=== PATIENT | female | born 1940 | race Caucasian/White ===

== ENCOUNTER 2021-11-22 22:57 | Inpatient (IN) ==
[2021-11-23 00:06] LABS: VBG HCO3 24 mEq/L (21-27); VBG PCO2 43 mmHg (41-51); VBG PH 7.36 pH Units (7.32-7.42); VBG PO2 54 mmHg (25-50)
[2021-11-23 00:07] LABS: INR 1.2; Prothrombin Time 13.1 Seconds (9.4-12.1)
[2021-11-23 00:10] LABS: Activated Partial Thrombo Time 29.7 Seconds (26.0-36.0)
[2021-11-23 00:22] LABS: Albumin 3.6 g/dL (3.5-5.7); Bilirubin,Total 0.6 mg/dL (0.3-1.0); Calcium 8.8 mg/dL (8.6-10.3); Globulin 3.5 g/dL (2.4-3.5); Potassium 3.3 mEq/L (3.5-5.1); Total Protein 7.1 g/dL (6.4-8.9)
[2021-11-23 00:29] LABS: Basophils % 0.3 %; Eosinophils # 0.3 K/mcL (0.0-0.6); Eosinophils % 2.8 %; Hematocrit 35.7 % (35.3-44.9); Hemoglobin 11.2 g/dL (11.5-15.4); Immature Granulocytes % 0.3 % (0-4); Lymphocytes # 2.5 K/mcL (0.6-4.6); Lymphocytes % 27.1 %; Mean Corpuscular HGB Conc 31.4 g/dL (31.6-35.5); Mean Corpuscular Hemoglobin 28.6 pg (28.0-33.3); Mean Corpuscular Volume 91.1 fL (83.0-100.0); Monocytes # 1.1 K/mcL (0.0-1.3); Monocytes % 11.6 %; Neutrophils # 5.3 K/mcL (1.6-8.9); Platelet Count 240 K/mcL (140-400); Red Blood Count 3.92 M/mcL (3.82-4.97); Red Cell Distribution Width 16.4 % (11.5-14.5); Segmented Neutrophils % 57.9 %; White Blood Count 9.1 K/mcL (4.3-11.1)
[2021-11-23] MEDS ORDERED: Iopamidol - 370 500 ML MLS IVP ONE (01:19)
[2021-11-23 01:49] LABS: Troponin I 0.08 ng/mL (< 0.04)
[2021-11-23] MEDS ORDERED: EPINEPHrine 1 MG/ML VIAL ONE (02:29)
[2021-11-23] MEDS ORDERED: EPINEPHrine 1 MG/ML VIAL IM ONE (02:32)
[2021-11-23] MEDS ORDERED: methylPREDNISolone 125 MG/2 ML VIAL IVP ONE (02:56)
[2021-11-23] MEDS ORDERED: 0.9 % Sodium Chloride 500 ML ONE (03:06)
[2021-11-23] MEDS ORDERED: *HR* Succinylcholine 200 MG/10 ML VIAL IVP ONE ×2 (03:07→04:00)
[2021-11-23] MEDS ORDERED: *HR* Etomidate 40 MG/20 ML VIAL IVP ONE (03:07)
[2021-11-23] MEDS ORDERED: *HR* Etomidate 20 MG/10 ML AMPUL IVP ONE ×2 (03:15→04:00)
[2021-11-23 03:24] LABS: VBG HCO3 24 mEq/L (21-27); VBG PCO2 58 mmHg (41-51); VBG PH 7.23 pH Units (7.32-7.42); VBG PO2 225 mmHg (25-50)
[2021-11-23 03:36] LABS: ABG Base Excess -5 mEq/L (-2 to 3); ABG HCO3 21 mEq/L (21-27); ABG Oxygen Saturation 100 % (95-98); ABG PCO2 39 mmHg (35-45); ABG PH 7.34 pH Units (7.32-7.45); ABG PO2 456 mmHg (85-104); ABG TCO2 22 mEq/L (20-26); Blood Gas Modality ASSIST CONTROL; Blood Gas VT 400 cc
[2021-11-23 04:19] LABS: Bilirubin,Urine Negative (Negative); Blood,Urine Negative (Negative); Budding Yeast,Urine Few per hpf (None Seen); Clarity,Urine Clear (Clear); Color,Urine Light-Yellow (Yellow); Glucose,Urine (UA) Normal (Normal); Hyaline Casts,Urine Few per lpf (None Seen); Ketones,Urine Negative (Negative); Leukocyte Esterase,Urine Moderate (Negative); Nitrite,Urine Negative (Negative); Protein,Urine Trace mg/dL (Neg-Trace); Specific Gravity,Urine > 1.030 (1.010-1.025); Squamous Epithelial Cell,Urine Few per hpf (None-Few); Urobilinogen,Urine Normal (Normal)
[2021-11-23] MEDS ORDERED: Naloxone 0.4 MG/ML INJ IVP PRN (05:19)
[2021-11-23] MEDS ORDERED: Artificial Tears SOLN 15 ML BOTTLE BOTH EYES PRN (05:30)
[2021-11-23] MEDS ORDERED: Famotidine 20 MG/2 ML VIAL IVP ONE (05:32)
[2021-11-23] MEDS ORDERED: *HR* Dextrose 50 % in Water (Syg) 50 ML SYRINGE IVP PRN (06:06)
[2021-11-23] MEDS ORDERED: D5% in Water 1,000 ML IVC PRN (06:06)
[2021-11-23] MEDS ORDERED: Dextrose Gel 15 GM/37.5 ML TUBE PO PRN ×2 (06:06)
[2021-11-23] MEDS: FentaNYL (PF) 1,000 MCG/100 ML IV.SOLN IVC SCH (06:14)
[2021-11-23] MEDS ORDERED: Ringers Solution, Lactated 1,000 ML ONE (06:35)
[2021-11-23] MEDS: Ipratropium/Albuterol Neb 3 ML IH SCH ×5 (08:02→23:29)
[2021-11-23 08:19] LABS: ABG Base Excess -3 mEq/L (-2 to 3); ABG HCO3 22 mEq/L (21-27); ABG Oxygen Saturation 99 % (95-98); ABG PCO2 39 mmHg (35-45); ABG PH 7.37 pH Units (7.32-7.45); ABG PO2 158 mmHg (85-104); ABG TCO2 24 mEq/L (20-26); Blood Gas Modality ASSIST CONTROL; Blood Gas VT 360 cc
[2021-11-23 08:21] LABS: Basophils % 0.1 %; Eosinophils % 0.2 %; Hematocrit 31.6 % (35.3-44.9); Hemoglobin 10.1 g/dL (11.5-15.4); Immature Granulocytes % 0.5 % (0-4); Lymphocytes # 0.6 K/mcL (0.6-4.6); Lymphocytes % 6.5 %; Mean Corpuscular Volume 90.8 fL (83.0-100.0); Mean Platelet Volume 10.6 fL (9.4-12.4); Monocytes # 0.5 K/mcL (0.0-1.3); Monocytes % 5.4 %; Neutrophils # 8.1 K/mcL (1.6-8.9); Platelet Count 165 K/mcL (140-400); Red Blood Count 3.48 M/mcL (3.82-4.97); Red Cell Distribution Width 16.4 % (11.5-14.5); Segmented Neutrophils % 87.3 %; White Blood Count 9.2 K/mcL (4.3-11.1)
[2021-11-23 08:35] LABS: INR 1.3
[2021-11-23 08:36] LABS: Albumin 2.9 g/dL (3.5-5.7); Bilirubin,Direct 0.2 mg/dL (0.0-0.2); Bilirubin,Indirect 0.5 mg/dL (0.0-1.0); Bilirubin,Total 0.7 mg/dL (0.3-1.0); Calcium 7.9 mg/dL (8.6-10.3); Globulin 2.9 g/dL (2.4-3.5); Magnesium 0.9 mg/dL (1.6-2.6); Potassium 3.8 mEq/L (3.5-5.1); Total Protein 5.8 g/dL (6.4-8.9)
[2021-11-23 08:37] LABS: Acetaminophen < 10 mcg/mL (10-20); Salicylate < 2.5 mg/dL (15.0-30.0)
[2021-11-23 08:51] LABS: Thyroid Stimulating Hormone 1.369 mcIU/mL (0.340-5.600)
[2021-11-23] MEDS ORDERED: Dexamethasone Sodium Phos/PF 10 MG/ML VIAL ONE (08:58)
[2021-11-23] MEDS ORDERED: levoFLOXacin 500 MG/100 ML 500 MG/100 ML BAG IVPB SCH (09:00)
[2021-11-23] MEDS ORDERED: Pantoprazole 40 MG VIAL IVP SCH (09:00)
[2021-11-23] MEDS: Ampicillin/Sulbactam 3,000 MG in 0.9 % Sodium Chloride Mini Bag 100 ML IVPB SCH ×2 (09:04→17:34)
[2021-11-23] MEDS: Dexamethasone Sodium Phos/PF 10 MG/ML VIAL IVP SCH ×2 (09:05→09:58)
[2021-11-23] MEDS: Artificial Tears SOLN 15 ML BOTTLE BOTH EYES SCH ×4 (09:17→21:19)
[2021-11-23] MEDS: Vancomycin Oral Soln 125 MG/2.5 ML UDC PO SCH ×4 (09:17→21:19)
[2021-11-23] MEDS: Chlorhexidine Rinse 15 ML MOUTHWASH MM SCH ×2 (09:17→21:20)
[2021-11-23] MEDS: Insulin LISPRO 300 UNITS/3 ML VIAL SUBQ SCH ×2 (13:06→17:38)
[2021-11-23] MEDS: methylPREDNISolone 125 MG/2 ML VIAL IVP SCH (17:35)
[2021-11-23] MEDS: *HR* Heparin 5,000 UNIT/ML VIAL SQ SCH (17:36)
[2021-11-23] MEDS: Famotidine 20 MG/2 ML VIAL IVP SCH (18:55)
[2021-11-24] MEDS: Artificial Tears SOLN 15 ML BOTTLE BOTH EYES SCH ×7 (01:41→23:22)
[2021-11-24] MEDS: methylPREDNISolone 125 MG/2 ML VIAL IVP SCH ×3 (01:41→18:54)
[2021-11-24] MEDS: Insulin LISPRO 300 UNITS/3 ML VIAL SUBQ SCH ×4 (01:42→18:56)
[2021-11-24 03:07] LABS: VBG Ionized Calcium 1.04 mmol/L (1.15-1.35)
[2021-11-24 03:16] LABS: Hematocrit 29.9 % (35.3-44.9); Hemoglobin 9.4 g/dL (11.5-15.4); Immature Granulocytes % 0.4 % (0-4); Lymphocytes # 0.7 K/mcL (0.6-4.6); Lymphocytes % 8.3 %; Mean Corpuscular HGB Conc 31.4 g/dL (31.6-35.5); Mean Corpuscular Hemoglobin 28.7 pg (28.0-33.3); Mean Corpuscular Volume 91.2 fL (83.0-100.0); Mean Platelet Volume 10.9 fL (9.4-12.4); Monocytes # 0.3 K/mcL (0.0-1.3); Neutrophils # 6.9 K/mcL (1.6-8.9); Platelet Count 194 K/mcL (140-400); Red Blood Count 3.28 M/mcL (3.82-4.97); Red Cell Distribution Width 16.2 % (11.5-14.5); Segmented Neutrophils % 87.3 %; White Blood Count 7.8 K/mcL (4.3-11.1)
[2021-11-24 03:28] LABS: Albumin 3.1 g/dL (3.5-5.7); Albumin/Globulin Ratio 1.1 (1.1-2.2); Bilirubin,Total 0.5 mg/dL (0.3-1.0); Calcium 8.1 mg/dL (8.6-10.3); Globulin 2.9 g/dL (2.4-3.5); Phosphorous 3.8 mg/dL (2.7-4.5); Potassium 4.3 mEq/L (3.5-5.1)
[2021-11-24] MEDS: FentaNYL (PF) 1,000 MCG/100 ML IV.SOLN IVC SCH (04:00)
[2021-11-24] MEDS: Ipratropium/Albuterol Neb 3 ML IH SCH ×6 (04:58→23:10)
[2021-11-24] MEDS: Famotidine 20 MG/2 ML VIAL IVP SCH (06:05)
[2021-11-24] MEDS: *HR* Heparin 5,000 UNIT/ML VIAL SQ SCH ×2 (06:05→18:54)
[2021-11-24] MEDS: Ampicillin/Sulbactam 3,000 MG in 0.9 % Sodium Chloride Mini Bag 100 ML IVPB SCH ×2 (06:06→18:55)
[2021-11-24] MEDS ORDERED: Famotidine 20 MG/2 ML VIAL IVP SCH (09:30)
[2021-11-24] MEDS: Chlorhexidine Rinse 15 ML MOUTHWASH MM SCH ×2 (09:30→20:06)
[2021-11-24] MEDS: Vancomycin Oral Soln 125 MG/2.5 ML UDC PO SCH ×5 (09:31→20:14)
[2021-11-24] MEDS ORDERED: OLANZapine 10 MG VIAL IM ONE (22:54)
[2021-11-25] MEDS ORDERED: *HR* Labetalol 20 MG/4 ML SYRINGE IVP ONE (00:13)
[2021-11-25] MEDS: Insulin LISPRO 300 UNITS/3 ML VIAL SUBQ SCH ×5 (00:32→20:29)
[2021-11-25] MEDS: Acetaminophen 325 MG TABLET PO PRN (01:12)
[2021-11-25] MEDS: methylPREDNISolone 125 MG/2 ML VIAL IVP SCH ×3 (02:02→20:34)
[2021-11-25 02:47] LABS: Hematocrit 29.6 % (35.3-44.9); Hemoglobin 9.2 g/dL (11.5-15.4); Immature Granulocytes % 0.4 % (0-4); Lymphocytes # 0.3 K/mcL (0.6-4.6); Lymphocytes % 4.6 %; Mean Corpuscular HGB Conc 31.1 g/dL (31.6-35.5); Mean Corpuscular Hemoglobin 28.8 pg (28.0-33.3); Mean Corpuscular Volume 92.5 fL (83.0-100.0); Mean Platelet Volume 10.8 fL (9.4-12.4); Monocytes # 0.1 K/mcL (0.0-1.3); Monocytes % 1.8 %; Neutrophils # 6.6 K/mcL (1.6-8.9); Platelet Count 223 K/mcL (140-400); Red Cell Distribution Width 16.4 % (11.5-14.5); Segmented Neutrophils % 93.2 %
[2021-11-25 03:10] LABS: Calcium 8.5 mg/dL (8.6-10.3); Potassium 4.8 mEq/L (3.5-5.1)
[2021-11-25] MEDS: Ipratropium/Albuterol Neb 3 ML IH SCH ×2 (04:38→07:43)
[2021-11-25] MEDS: Artificial Tears SOLN 15 ML BOTTLE BOTH EYES SCH ×5 (04:44→20:31)
[2021-11-25] MEDS: *HR* Heparin 5,000 UNIT/ML VIAL SQ SCH ×2 (06:00→17:33)
[2021-11-25] MEDS: Ampicillin/Sulbactam 3,000 MG in 0.9 % Sodium Chloride Mini Bag 100 ML IVPB SCH (06:00)
[2021-11-25] MEDS: Famotidine 20 MG/2 ML VIAL IVP SCH (06:01)
[2021-11-25] MEDS ORDERED: Ipratropium/Albuterol Neb 3 ML IH PRN (08:09)
[2021-11-25] MEDS: Vancomycin Oral Soln 125 MG/2.5 ML UDC PO SCH ×4 (10:12→20:28)
[2021-11-25] MEDS: Chlorhexidine Rinse 15 ML MOUTHWASH MM SCH ×2 (10:14→20:28)
[2021-11-25] MEDS: carvediloL 6.25 MG TABLET PO SCH (17:27)
[2021-11-25] MEDS: Pantoprazole 40 MG VIAL IVP SCH (17:29)
[2021-11-25] MEDS: Lactobacillus 1 EACH CAP.SPRINK PO SCH (20:28)
[2021-11-25] MEDS: Mirtazapine 15 MG TABLET PO SCH (20:28)
[2021-11-25 20:52] LABS: Hematocrit 31.4 % (35.3-44.9); Hemoglobin 9.9 g/dL (11.5-15.4)
[2021-11-26] MEDS: Artificial Tears SOLN 15 ML BOTTLE BOTH EYES SCH ×7 (00:30→20:22)
[2021-11-26] MEDS: Famotidine 20 MG/2 ML VIAL IVP SCH (06:16)
[2021-11-26] MEDS: Pantoprazole 40 MG VIAL IVP SCH ×2 (06:17→17:39)
[2021-11-26] MEDS: *HR* Heparin 5,000 UNIT/ML VIAL SQ SCH ×2 (06:17→17:39)
[2021-11-26 07:35] LABS: Magnesium 1.5 mg/dL (1.6-2.6); Phosphorous 2.5 mg/dL (2.7-4.5)
[2021-11-26 07:38] LABS: Calcium 9.1 mg/dL (8.6-10.3); Potassium 4.2 mEq/L (3.5-5.1)
[2021-11-26 07:39] LABS: % Iron Saturation 32 % (15-50); Iron 113 mcg/dL (50-170); Transferrin 254 mg/dL (203-362)
[2021-11-26 07:55] LABS: Ferritin 109 ng/mL (10-120)
[2021-11-26 08:00] LABS: Folate 7.3 ng/mL (3.0-16.0)
[2021-11-26] MEDS ORDERED: amLODIPine 5 MG TABLET PO SCH (09:00)
[2021-11-26] MEDS: carvediloL 6.25 MG TABLET PO SCH ×2 (09:54→17:39)
[2021-11-26] MEDS: Lactobacillus 1 EACH CAP.SPRINK PO SCH ×2 (09:54→20:18)
[2021-11-26] MEDS: Loratadine 10 MG TABLET PO SCH (09:54)
[2021-11-26] MEDS: Chlorhexidine Rinse 15 ML MOUTHWASH MM SCH ×2 (09:56→20:18)
[2021-11-26] MEDS: Vancomycin Oral Soln 125 MG/2.5 ML UDC PO SCH ×4 (09:56→20:18)
[2021-11-26] MEDS: methylPREDNISolone 125 MG/2 ML VIAL IVP SCH (10:00)
[2021-11-26] MEDS: Insulin LISPRO 300 UNITS/3 ML VIAL SUBQ SCH ×5 (10:00→20:22)
[2021-11-26 12:05] LABS: Basophils % 0.2 %; Eosinophils % 0.3 %; Hematocrit 34.9 % (35.3-44.9); Hemoglobin 10.9 g/dL (11.5-15.4); Immature Granulocytes % 0.5 % (0-4); Lymphocytes # 1.1 K/mcL (0.6-4.6); Lymphocytes % 17.1 %; Mean Corpuscular HGB Conc 31.2 g/dL (31.6-35.5); Mean Corpuscular Hemoglobin 29.1 pg (28.0-33.3); Mean Corpuscular Volume 93.3 fL (83.0-100.0); Mean Platelet Volume 10.1 fL (9.4-12.4); Monocytes # 0.4 K/mcL (0.0-1.3); Monocytes % 5.4 %; Neutrophils # 4.9 K/mcL (1.6-8.9); Platelet Count 203 K/mcL (140-400); Red Blood Count 3.74 M/mcL (3.82-4.97); Red Cell Distribution Width 16.1 % (11.5-14.5); Segmented Neutrophils % 76.5 %; White Blood Count 6.4 K/mcL (4.3-11.1)
[2021-11-26] MEDS: Magnesium Oxide 400 MG TABLET PO SCH ×2 (12:37→20:51)
[2021-11-26] MEDS: Acetaminophen 325 MG TABLET PO PRN (12:53)
[2021-11-26] MEDS: Mirtazapine 15 MG TABLET PO SCH (20:18)
[2021-11-27] MEDS: Artificial Tears SOLN 15 ML BOTTLE BOTH EYES SCH ×6 (01:13→20:56)
[2021-11-27 03:45] LABS: Calcium 8.6 mg/dL (8.6-10.3); Magnesium 1.5 mg/dL (1.6-2.6); Phosphorous 4.3 mg/dL (2.7-4.5); Potassium 4.8 mEq/L (3.5-5.1)
[2021-11-27] MEDS: *HR* Heparin 5,000 UNIT/ML VIAL SQ SCH ×2 (05:32→16:40)
[2021-11-27] MEDS: Famotidine 20 MG/2 ML VIAL IVP SCH (05:33)
[2021-11-27] MEDS: Pantoprazole 40 MG VIAL IVP SCH ×2 (05:33→16:40)
[2021-11-27] MEDS ORDERED: Haloperidol Lactate 5 MG/ML VIAL IM ONE (06:36)
[2021-11-27] MEDS ORDERED: 0.9 % Sodium Chloride 1,000 ML IVC SCH (07:15)
[2021-11-27 08:25] LABS: Basophils % 0.1 %; Eosinophils # 0.1 K/mcL (0.0-0.6); Eosinophils % 1.7 %; Hematocrit 33.9 % (35.3-44.9); Hemoglobin 10.7 g/dL (11.5-15.4); Immature Granulocytes % 0.3 % (0-4); Lymphocytes # 2.4 K/mcL (0.6-4.6); Mean Corpuscular HGB Conc 31.6 g/dL (31.6-35.5); Mean Corpuscular Hemoglobin 29.3 pg (28.0-33.3); Mean Corpuscular Volume 92.9 fL (83.0-100.0); Mean Platelet Volume 10.2 fL (9.4-12.4); Monocytes # 0.7 K/mcL (0.0-1.3); Monocytes % 9.4 %; Neutrophils # 3.8 K/mcL (1.6-8.9); Platelet Count 199 K/mcL (140-400); Red Blood Count 3.65 M/mcL (3.82-4.97); Red Cell Distribution Width 15.9 % (11.5-14.5); Segmented Neutrophils % 54.5 %
[2021-11-27] MEDS ORDERED: MethylPREDNISolone 40 MG/ML VIAL IVP SCH (09:00)
[2021-11-27] MEDS: amLODIPine 5 MG TABLET PO SCH (09:33)
[2021-11-27] MEDS: Lactobacillus 1 EACH CAP.SPRINK PO SCH ×2 (09:33→20:50)
[2021-11-27] MEDS: Loratadine 10 MG TABLET PO SCH (09:34)
[2021-11-27] MEDS: Vancomycin Oral Soln 125 MG/2.5 ML UDC PO SCH ×4 (09:34→20:51)
[2021-11-27] MEDS: carvediloL 6.25 MG TABLET PO SCH ×2 (09:34→16:40)
[2021-11-27] MEDS: Chlorhexidine Rinse 15 ML MOUTHWASH MM SCH ×2 (09:34→20:51)
[2021-11-27] MEDS: Magnesium Oxide 400 MG TABLET PO SCH (09:34)
[2021-11-27] MEDS: Insulin LISPRO 300 UNITS/3 ML VIAL SUBQ SCH ×4 (09:38→20:51)
[2021-11-27] MEDS: predniSONE 20 MG TABLET PO SCH (11:27)
[2021-11-27 15:39] LABS: Bacteria,Urine Few per hpf (None-Few); Bilirubin,Urine Negative (Negative); Blood,Urine Negative (Negative); Budding Yeast,Urine Many per hpf (None Seen); Clarity,Urine Clear (Clear); Color,Urine Light-Yellow (Yellow); Glucose,Urine (UA) Normal (Normal); Hyaline Casts,Urine Few per lpf (None Seen); Ketones,Urine Negative (Negative); Leukocyte Esterase,Urine Large (Negative); Mucus,Urine Few per lpf (None-Few); Nitrite,Urine Negative (Negative); Protein,Urine Negative (Neg-Trace); Specific Gravity,Urine 1.014 (1.010-1.025); Transitional Epi Cells,Urine Few per hpf (None-Few); Urobilinogen,Urine Normal (Normal); WBC,Urine 50-100 per hpf (0-3)
[2021-11-27] MEDS: cefTRIAXone 1,000 MG in 0.9 % Sodium Chloride 10 ML IVP SCH (17:17)
[2021-11-27] MEDS: Mirtazapine 15 MG TABLET PO SCH (20:50)
[2021-11-28] MEDS: Artificial Tears SOLN 15 ML BOTTLE BOTH EYES SCH ×7 (00:35→23:41)
[2021-11-28 03:42] LABS: Basophils % 0.1 %; Eosinophils % 0.4 %; Hematocrit 31.2 % (35.3-44.9); Hemoglobin 9.9 g/dL (11.5-15.4); Immature Granulocytes % 1.1 % (0-4); Lymphocytes # 1.4 K/mcL (0.6-4.6); Lymphocytes % 17.6 %; Mean Corpuscular HGB Conc 31.7 g/dL (31.6-35.5); Mean Corpuscular Hemoglobin 28.9 pg (28.0-33.3); Mean Corpuscular Volume 91.2 fL (83.0-100.0); Mean Platelet Volume 10.3 fL (9.4-12.4); Monocytes # 0.5 K/mcL (0.0-1.3); Monocytes % 6.3 %; Neutrophils # 6.1 K/mcL (1.6-8.9); Platelet Count 219 K/mcL (140-400); Red Blood Count 3.42 M/mcL (3.82-4.97); Red Cell Distribution Width 15.3 % (11.5-14.5); Segmented Neutrophils % 74.5 %; White Blood Count 8.1 K/mcL (4.3-11.1)
[2021-11-28 04:01] LABS: Calcium 8.2 mg/dL (8.6-10.3); Magnesium 1.7 mg/dL (1.6-2.6); Phosphorous 2.9 mg/dL (2.7-4.5); Potassium 4.7 mEq/L (3.5-5.1)
[2021-11-28] MEDS: *HR* Heparin 5,000 UNIT/ML VIAL SQ SCH ×2 (05:08→17:18)
[2021-11-28] MEDS: Famotidine 20 MG/2 ML VIAL IVP SCH (05:08)
[2021-11-28] MEDS: Pantoprazole 40 MG VIAL IVP SCH ×2 (05:08→17:19)
[2021-11-28] MEDS: Chlorhexidine Rinse 15 ML MOUTHWASH MM SCH ×2 (08:21→20:30)
[2021-11-28] MEDS: carvediloL 6.25 MG TABLET PO SCH ×2 (08:22→16:03)
[2021-11-28] MEDS: Lactobacillus 1 EACH CAP.SPRINK PO SCH ×2 (08:22→20:30)
[2021-11-28] MEDS: Vancomycin Oral Soln 125 MG/2.5 ML UDC PO SCH ×4 (08:22→20:31)
[2021-11-28] MEDS: amLODIPine 5 MG TABLET PO SCH (08:23)
[2021-11-28] MEDS: predniSONE 20 MG TABLET PO SCH (08:23)
[2021-11-28] MEDS: Magnesium Oxide 400 MG TABLET PO SCH (08:23)
[2021-11-28] MEDS: Loratadine 10 MG TABLET PO SCH (08:23)
[2021-11-28] MEDS: Insulin LISPRO 300 UNITS/3 ML VIAL SUBQ SCH ×4 (08:26→20:31)
[2021-11-28] MEDS ORDERED: 0.9 % Sodium Chloride 1,000 ML ONE (13:54)
[2021-11-28] MEDS ORDERED: 0.9 % Sodium Chloride 1,000 ML IVC SCH (14:00)
[2021-11-28] MEDS: cefTRIAXone 1,000 MG in 0.9 % Sodium Chloride 10 ML IVP SCH (16:04)
[2021-11-28] MEDS: Mirtazapine 15 MG TABLET PO SCH (20:30)
[2021-11-29] MEDS: Artificial Tears SOLN 15 ML BOTTLE BOTH EYES SCH ×3 (03:33→13:01)
[2021-11-29 03:35] LABS: Basophils % 0.2 %; Eosinophils # 0.1 K/mcL (0.0-0.6); Eosinophils % 0.5 %; Hematocrit 31.7 % (35.3-44.9); Hemoglobin 10.1 g/dL (11.5-15.4); Immature Granulocytes % 0.9 % (0-4); Lymphocytes # 1.8 K/mcL (0.6-4.6); Mean Corpuscular HGB Conc 31.9 g/dL (31.6-35.5); Mean Corpuscular Volume 91.1 fL (83.0-100.0); Mean Platelet Volume 10.4 fL (9.4-12.4); Monocytes # 0.7 K/mcL (0.0-1.3); Neutrophils # 6.9 K/mcL (1.6-8.9); Platelet Count 216 K/mcL (140-400); Red Blood Count 3.48 M/mcL (3.82-4.97); Red Cell Distribution Width 15.6 % (11.5-14.5); Segmented Neutrophils % 72.4 %; White Blood Count 9.6 K/mcL (4.3-11.1)
[2021-11-29 03:58] LABS: Potassium 4.6 mEq/L (3.5-5.1)
[2021-11-29] MEDS: Famotidine 20 MG/2 ML VIAL IVP SCH (06:02)
[2021-11-29] MEDS: Pantoprazole 40 MG VIAL IVP SCH (06:02)
[2021-11-29] MEDS: *HR* Heparin 5,000 UNIT/ML VIAL SQ SCH (06:02)
[2021-11-29] MEDS: Insulin LISPRO 300 UNITS/3 ML VIAL SUBQ SCH ×2 (10:12→13:01)
[2021-11-29] MEDS: Vancomycin Oral Soln 125 MG/2.5 ML UDC PO SCH ×2 (10:13→13:03)
[2021-11-29] MEDS: predniSONE 20 MG TABLET PO SCH (10:13)
[2021-11-29] MEDS: Magnesium Oxide 400 MG TABLET PO SCH (10:13)
[2021-11-29] MEDS: amLODIPine 5 MG TABLET PO SCH (10:13)
[2021-11-29] MEDS: Loratadine 10 MG TABLET PO SCH (10:13)
[2021-11-29] MEDS: Chlorhexidine Rinse 15 ML MOUTHWASH MM SCH (10:13)
[2021-11-29] MEDS: Lactobacillus 1 EACH CAP.SPRINK PO SCH (10:13)
[2021-11-29] MEDS: carvediloL 6.25 MG TABLET PO SCH (10:19)
[2021-11-29 11:30] VITALS: TEMP 97.9
[2021-11-29 11:44] VITALS: BP 106/64; PULSE 76; O2SAT 94
== END 2021-11-29 17:33 | disposition home or self-care (01) | DRG 208 ==
LOC: EMEROOARM 22:57 → 2NNU 11-23 04:45 → SUATTDRO 11-23 04:45 → 2NNU 11-23 05:18 → 2NENU 11-27 18:12
PROVIDERS: ADMIT Internal Medicine; ATTEND Family Medicine